=== PATIENT | female | born 1975 | race Caucasian/White ===

== ENCOUNTER → 2016-08-29 | Outpatient (CLI) | payer OTHER ==
--- NOTE | 2016-08-29 11:09 | KCIC ---
PROCEDURE MRI right knee without contrast dated 08/29/16 HISTORY Right knee pain after injury. Possible meniscal tear. TECHNIQUE Routine multiplanar multisequence MR imaging performed. COMPARISON None. FINDINGS Complete tear of the anterior cruciate ligament at its femoral attachment/mid substance. PCL is intact. Medial and lateral collateral complexes are intact. There is mild increased signal within the substance of the popliteus tendon at its femoral attachment. Vertical short axis tear posterior horn of lateral meniscus. Anterior horn and body are intact. There is blunted morphology and deficiency in size of the anterior horn of body of medial meniscus. Possible redundant tissue at the intercondylar notch. Quadriceps and patellar tendon are intact. No abnormality of the medial or lateral retinaculum. Mild superficial infrapatellar edema and prepatellar edema, nonspecific. Thereof moderate size joint effusion. Small to moderate-sized popliteal cyst. No intra-articular loose body. Focal areas of bone marrow edema at the posterior medial and lateral tibial plateau. Distal femur is intact. Thinning and surface irregularity of the articular cartilage throughout. Full-thickness cartilage loss at the trochlear groove. No discrete fracture line. IMPRESSION Complete tear of the anterior cruciate ligament at its femoral attachment/mid substance. Small vertical short axis tear posterior horn of lateral meniscus. Deficiency in size of the anterior horn/body of medial meniscus, also possibly related to tear. Possible displaced meniscal tissue at the intercondylar notch. Moderate size joint effusion and moderate-sized popliteal cyst. Bone contusions of the posterior medial and posterior lateral tibial plateau. Mild popliteus tendinosis. Electronically signed by: Ambrosio Peter (Aug 29, 2016 11:07:33)
== END | disposition home or self-care (01) ==
LOC: KCIC MRI 09:54
PROVIDERS: ATTEND Orthopaedic Surgery
DX: S83.511A Sprain of anterior cruciate ligament of right knee, initial encounter (principal); S80.01XA Contusion of right knee, initial encounter; M71.21 Synovial cyst of popliteal space [Baker], right knee; M25.461 Effusion, right knee; X58.XXXA Exposure to other specified factors, initial encounter; Y93.89 Activity, other specified; Y92.89 Other specified places as the place of occurrence of the external cause; Y99.8 Other external cause status
CPT/HCPCS: 73721